=== PATIENT | female | born 1970 | race Caucasian/White ===

== ENCOUNTER 2019-01-08 16:31 | Emergency (ER) | payer MEDICAID ==
--- NOTE | 2019-01-08 17:51 | ED Physician Chart ---
ED Chief Complaint/HPI - Patient Information Date Seen:: 01/08/19 Time Seen:: 17:30 Chief Complaint:: cut finger fungal rash breast Allergies:: Allergies Allergy/AdvReac Type Severity Reaction Status Date / Time No Known Allergies Allergy Verified 01/08/19 17:18 Vitals:: Vital Signs - 8 hr 01/08/19 17:18 Temp 98.6 F HR 102 RR 18 BP 146/75 O2 Sat % 99 Historian:: Patient Review:: Nurse's Note Reviewed ED Review of Systems - Review of Systems General/Constitutional: No fever Skin: Skin lesions Head: No headache Eyes: No loss of vision ENT: No earache Neck: No swelling Cardio Vascular: No chest pain GI: No nausea, No vomiting Musculoskeletal: Bone or joint pain Hematopoietic: No bruising Allergic/Immuno: No urticaria Neurological: No syncope Family Medical History - Family Member Mother History Unknown: Yes ED Physical Exam - Physical Examination General/Constitutional: Awake, Well-developed, well-nourished, Alert, No distress, GCS 15, Non-toxic appearing, Ambulatory Head: Atraumatic Eyes: Lids, conjuctiva normal Skin: No rash (2nd index finger flapover joint superficial laceration scalling flaky schwarz itching excoriations) ENMT: External ears, nose nl Neck: Nontender GI: No tenderness/rebounding/guarding Extremities: No tenderness or effusion Neuro/Psych: Alert/oriented, No focal deficits Misc: Normal back ED Assessment - Assessment General Assessment: laceration superficial poosible ring worm ED Septic Shock - . Is Septic Shock (SBP<90, OR Lactate>4 mmol\L) present?: No - <6hrs of presentation: Vital Signs: Vital Signs - 8 hr 01/08/19 17:18 Temp 98.6 F HR 102 RR 18 BP 146/75 O2 Sat % 99 ED Reassessment (Disposition) - Patient Disposition Discharge/Transfer:: Home ( ds nystatin creme diflucan)
== END 2019-01-08 18:13 | disposition home or self-care (01) ==
LOC: ER 16:31
DX: S61.210A Laceration without foreign body of right index finger without damage to nail, initial encounter (principal); W26.8XXA Contact with other sharp object(s), not elsewhere classified, initial encounter; Y93.89 Activity, other specified; Y92.89 Other specified places as the place of occurrence of the external cause; Y99.8 Other external cause status
CPT/HCPCS: Z7502